=== PATIENT | female | born 1995 | race Caucasian/White ===

== ENCOUNTER 2019-02-10 15:55 | Emergency (ER) | payer SELFPAY ==
[~2019-02-10] VITALS: Ht 170.2 cm; Wt 82.1 kg
[2019-02-10 16:13] VITALS: Ht 170.2 cm; Wt 82.1 kg
[2019-02-10 17:38] VITALS: BP 126/74
== END 2019-02-10 17:38 | disposition home or self-care (01) ==
LOC: ED 15:55
DX: L70.0 Acne vulgaris (principal)